=== PATIENT | female | born 1950 | race Caucasian/White ===

== ENCOUNTER 2017-04-11 08:34 | Outpatient (CLI) | payer MEDICARE ==
--- NOTE | 2017-04-11 11:25 | MRI ---
MRI LUMBAR SPINE WITHOUT CONTRAST: Technique: Multiplanar, multisequential imaging of the lumbar spine obtained. History: Low back pain. Comparison: None. FINDINGS: Lumbar vertebrae maintain height and alignment. There are mild to moderate degenerative changes noted with osteophytes from the anterior and lateral lumbar vertebrae. Degenerative disc changes are noted . There is loss of disc space at L1-2 and L2-3. The L3-4, L4-5, and L5-S1 disc spaces maintain height . L2-3: There is a mild diffuse disc bulge, slightly more prominent to the left which mildly flattens the anterior thecal sac. Mild facet arthrosis. Very mild central canal stenosis. L2-3: Minimal disc bulge. Mild facet arthrosis. Minimal central canal stenosis. L3-4: Mild diffuse disc bulge. Mild facet and ligamentous hypertrophy. Mild central canal stenosis. L4-5: More prominent diffuse disc bulge is present flattening the thecal sac. Facet and ligamentous h ypertrophy is more prominent. Mild to moderate central canal stenosis at this level. Mild bilateral f oraminal encroachment due to the diffuse disc bulge. L5-S1: No significant disc bulge. No central canal or foraminal stenosis. IMPRESSION: 1. Broad based bulge at L4-5 with posterior hypertrophic changes resulting in mild to moderate centra l canal stenosis. POS: OFF
== END 2017-04-11 08:35 | disposition home or self-care (01) ==
LOC: TBSIIMAG 08:34
PROVIDERS: ATTEND Neurological Surgery
DX: M54.5 Low back pain (principal); M51.86 Other intervertebral disc disorders, lumbar region; M48.061 Spinal stenosis, lumbar region without neurogenic claudication
CPT/HCPCS: 72148